=== PATIENT | male | born 1975 | race Hispanic/Latino ===

== ENCOUNTER 2019-07-24 09:32 | Outpatient (CLI) | payer OTHER ==
--- NOTE | 2019-07-24 12:24 | MRI ---
MRI RIGHT SHOULDER: Date: 07/24/2019 PROVIDED CLINICAL HISTORY: Right shoulder pain. FINDINGS: Evaluation is limited by patient motion. FINDINGS: Intact interarticular long head biceps tendon fibers are not identified. There is an irregular and fo martha enlarged long head biceps tendon seen just caudal to the bicipital groove approximately 3.3 cm from the humeral head superior articular surface. The components of the rotator cuff appear grossly intact. The glenoid labrum and glenohumeral articular cartilage are suboptimally evaluated on this study. The amount of fluid within the glenohumeral joint is slightly greater than physiologic. Acromioclavicular joint osteoarthrosis is demonstrated without evidence for significant mass effect u derrick the subjacent supraspinatus. No focal concerning regional marrow or muscular signal abnormality is evident. IMPRESSION: 1. Disruption of long head biceps tendon from biceps anchor with retraction as described. 2. Acromioclavicular joint osteoarthrosis. POS: JEB
== END 2019-07-24 09:33 | disposition home or self-care (01) ==
LOC: BICMRI 09:32
PROVIDERS: ATTEND Family Medicine
DX: S49.91XA Unspecified injury of right shoulder and upper arm, initial encounter (principal); M19.011 Primary osteoarthritis, right shoulder

== ENCOUNTER 2020-11-04 08:34 | Outpatient (CLI) | payer OTHER | END 2020-11-04 08:35 | disposition home or self-care (01) | LOC: BICRAD 08:34 | DX: S99.921A Unspecified injury of right foot, initial encounter (principal); S99.911A Unspecified injury of right ankle, initial encounter ==